=== PATIENT | female | born 1980 | race African-American/Black ===

== ENCOUNTER 2016-09-21 11:35 | Emergency (ER) | payer OTHER ==
[~2016-09-21] VITALS: Ht 157.5 cm; Wt 92.6 kg
[2016-09-21 11:37] VITALS: BP 128/87
[2016-09-21] MEDS ORDERED: DIPH,PERTUSS(ACELL),TET VAC/PF 0.5 ML IM-VACC ONE ×2 (12:30→13:32)
[2016-09-21 12:52] LABS: HEMATOCRIT 42.7 % (34.6-47.8); HEMOGLOBIN 14.1 g/dL (11.7-16.4); WHITE BLOOD COUNT 5.4 x10^3/uL (3.4-10)
[2016-09-21 13:00] LABS: BLOOD UREA NITROGEN 10 mg/dL (7-18)
[2016-09-21 13:04] LABS: ASPARTATE AMINO TRANSFERASE 14 U/L (15-37)
[2016-09-21 13:11] LABS: HCG UR OBC PASS
[2016-09-21 13:11] LABS: HIV 1&2 ANTIBODY SCREEN Nonreactive (Nonreactive); HIV-1 p24 ANTIGEN Nonreactive (Nonreactive)
[2016-09-21] MEDS ORDERED: KETOROLAC 30 MG/1 ML ONE (13:44)
[2016-09-22 09:35] LABS: HEP B SURF. AB < 3.1 mIU/mL (0.0-10.0)
== END 2016-09-21 14:18 | disposition home or self-care (01) ==
LOC: ED 14:00
DX: S61.431A Puncture wound without foreign body of right hand, initial encounter (principal); Z23 Encounter for immunization; W46.0XXA Contact with hypodermic needle, initial encounter; Y93.89 Activity, other specified; Y99.8 Other external cause status; Y92.89 Other specified places as the place of occurrence of the external cause
CPT/HCPCS: 36415; 80053; 81003; 81025; 85025; 86703; 86705; 86706; 86803; 87340; 87899; 90471; 90715; G0435